=== PATIENT | male | born 1970 ===

== ENCOUNTER 2017-06-02 11:30 | Emergency (ER) | payer OTHER ==
[2017-06-02 11:36] VITALS: BMI 36.8
[2017-06-02 11:39] VITALS: BP 173/89; PULSE 89; RESP 16; TEMP 97; O2SAT 100
--- NOTE | 2017-06-02 12:17 | ED PDOC ---
HPI: Back Time Seen by Provider: 06/02/17 12:02 Chief Complaint (Nursing): Back Pain Past Medical History Vital Signs: Last Vital Signs Temp 97.0 F L 06/02/17 11:38 Pulse 89 06/02/17 11:38 Resp 16 06/02/17 11:38 BP 173/89 H 06/02/17 11:38 Pulse Ox 100 06/02/17 11:38 - Family History Family History: States: Unknown Family Hx - Immunization History Hx Tetanus Toxoid Vaccination: No Hx Influenza Vaccination: No Hx Pneumococcal Vaccination: No - Home Medications Home Medications: Ambulatory Orders Medication Instructions Recorded Cyclobenzaprine [Cyclobenzaprine 10 mg PO Q8 PRN #20 tab 04/15/17 HCl] Ibuprofen [Motrin] 600 mg PO Q6 PRN #20 tab 04/15/17 - Allergies Allergies/Adverse Reactions: Allergies Allergy/AdvReac Type Severity Reaction Status Date / Time No Known Allergies Allergy Verified 04/15/17 10:07 - ECG O2 Sat by Pulse Oximetry: 100 Medical Decision Making Medical Decision Making: Time: 1202 Initial impression: Initial plan: Scribe Attestation: Documented by Saira Sandoval, acting as a scribe for Jeramy Davis PA-C Provider Scribe Attestation: All medical record entries made by the Scribe were at my direction and personally dictated by me. I have reviewed the chart and agree that the record accurately reflects my personal performance of the history, physical exam, medical decision making, and the department course for this patient. I have also personally directed, reviewed, and agree with the discharge instructions and disposition. Disposition - Disposition
--- NOTE | 2017-06-02 12:19 | ED PDOC ---
HPI: General Adult Time Seen by Provider: 06/02/17 12:02 Chief Complaint (Nursing): Back Pain Chief Complaint (Provider): Shoulder pain History Per: Patient History/Exam Limitations: no limitations Onset/Duration Of Symptoms: Days Current Symptoms Are (Timing): Still Present Additional Complaint(s): 46 year old male, right-hand dominant, presents to the emergency department with an atraumatic right shoulder pain that at times radiates to the right elbow or to the right scapula x2 months. States pain starts from the right scapula and radiates to the shoulder. Reports pain has been constant since it began two months ago. 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 He has been seen twice in the past in [facility] for the same complaints. Patient has been taking Motrin and Flexeril that usually provides relief for the pain but no longer has. Denies trauma, chest pain, shortness of breath, palpitations, cough, blood in cough, leg pain, and history of deep vein thrombosis (DVT) or pulmonary embolism (PE). Past Medical History Reviewed: Historical Data, Nursing Documentation, Vital Signs Vital Signs: Last Vital Signs Temp 97.0 F L 06/02/17 11:38 Pulse 89 06/02/17 11:38 Resp 16 06/02/17 11:38 BP 173/89 H 06/02/17 11:38 Pulse Ox 100 06/02/17 12:59 - Medical History PMH: No Chronic Diseases - Surgical History Surgical History: No Surg Hx - Family History Family History: States: Unknown Family Hx - Social History Current smoker - smoking cessation education provided: No Alcohol: Social Drugs: Denies - Immunization History Hx Tetanus Toxoid Vaccination: No Hx Influenza Vaccination: No Hx Pneumococcal Vaccination: No - Home Medications Home Medications: Ambulatory Orders Medication Instructions Recorded Cyclobenzaprine [Cyclobenzaprine 10 mg PO Q8 PRN #20 tab 04/15/17 HCl] Ibuprofen [Motrin] 600 mg PO Q6 PRN #20 tab 04/15/17 Cyclobenzaprine [Cyclobenzaprine 10 mg PO Q8 PRN #30 tab 06/02/17 HCl] Naproxen [Naprosyn] 500 mg PO BID PRN #30 tab 06/02/17 - Allergies Allergies/Adverse Reactions: Allergies Allergy/AdvReac Type Severity Reaction Status Date / Time No Known Allergies Allergy Verified 04/15/17 10:07 Review of Systems ROS Statement: Except As Marked, All Systems Reviewed And Found Negative (As per HPI, otherwise negative) Constitutional: Negative for: Other (Trauma and Hx of DVT or PE) Cardiovascular: Negative for: Chest Pain, Palpitations Respiratory: Negative for: Cough, Shortness of Breath, Hemoptysis Musculoskeletal: Positive for: Shoulder Pain (Right), Arm Pain (Right elbow), Other (Right scapula). Negative for: Leg Pain Physical Exam - Reviewed Nursing Documentation Reviewed: Yes Vital Signs Reviewed: Yes - Physical Exam Appears: Positive for: Non-toxic, No Acute Distress Head Exam: Positive for: NORMAL INSPECTION Skin: Positive for: Normal Color, Warm, Dry Cardiovascular/Chest: Positive for: Regular Rate, Rhythm. Negative for: Murmur Respiratory: Positive for: Normal Breath Sounds. Negative for: Accessory Muscle Use, Respiratory Distress Extremity: Positive for: Normal ROM (Full range of motion actively of the right shoulder). Negative for: Tenderness, Calf Tenderness (bilaterally), Deformity Neurologic/Psych: Positive for: Alert, Oriented (x3) - ECG O2 Sat by Pulse Oximetry: 100 (RA) Pulse Ox Interpretation: Normal - Radiology X-Ray: Interpreted by Me (Shoulder x-ray) X-Ray Interpretation: No Acute Disease Medical Decision Making Medical Decision Making: Time: 1202 Initial impression: Shoulder pain Initial plan: --Flexeril 10 mg PO --Toradol 30 mg IM --Right Shoulder x-ray --Reevaluation Time: 12:50 --X-ray read by me and shows no acute findings or significant abnormalities. Time: 1258 --Patient is medically stable for discharge and given Rx for Cyclobenzaprine HCl 10 mg and Naprosyn 500 mg. Patient advised to follow up with Dr. Los Schuster MD. Scribe Attestation: Documented by Saira Sandoval, acting as a scribe for Jeramy Davis PA-C Provider Scribe Attestation: All medical record entries made by the Scribe were at my direction and personally dictated by me. I have reviewed the chart and agree that the record accurately reflects my personal performance of the history, physical exam, medical decision making, and the department course for this patient. I have also personally directed, reviewed, and agree with the discharge instructions and disposition. Disposition - Clinical Impression Clinical Impression: Shoulder pain - Patient ED Disposition Is Patient to be Admitted: No - Disposition Referrals: Tamia White [Outside] Los Schuster III, MD [Staff Provider] - Disposition: Routine/Home Disposition Time: 12:58 Condition: STABLE Prescriptions: Cyclobenzaprine [Cyclobenzaprine HCl] 10 mg PO Q8 PRN #30 tab PRN Reason: Muscle Spasm Naproxen [Naprosyn] 500 mg PO BID PRN #30 tab PRN Reason: Pain Instructions: Shoulder Pain (ED) Forms: [employer] (Gabonese) Print Language: MALTESE
--- NOTE | 2017-06-02 13:19 | RAD ---
PROCEDURE: Radiographs of the Right Shoulder HISTORY: pain COMPARISON: No prior. FINDINGS: BONES: Normal. No fracture. JOINTS: Normal. Glenohumeral and acromioclavicular joints preserved. No osteoarthritis. SOFT TISSUES: Normal. OTHER FINDINGS: None. IMPRESSION: Normal radiographs of the right shoulder.
== END 2017-06-02 13:49 | disposition home or self-care (01) ==
LOC: H.ER 11:30
DX: M25.511 Pain in right shoulder (principal); M54.9 Dorsalgia, unspecified
CPT/HCPCS: 73030; 96372; 99283; J1885